=== PATIENT | female | born 1955 | race Caucasian/White ===

== ENCOUNTER 2021-08-14 10:50 | Day surgery (SDC) | payer OTHER ==
[2021-08-14] MEDS ORDERED: FERRIC CARBOXYMALTOSE 750 MG in SODIUM CHLORIDE 250 ML IVPB SCH (11:30)
[2021-08-14 14:42] VITALS: BP 132/72; PULSE 70; TEMP 98.3
== END 2021-08-14 13:30 | disposition home or self-care (01) ==
LOC: FINFUSION 10:50 → FM/S 10:56 → FINFUSION 13:30
PROVIDERS: ATTEND Family Medicine
PROC: 3E033GC Introduction of Other Therapeutic Substance into Peripheral Vein, Percutaneous Approach (ICD-10-PCS; principal; 2021-08-14)
DX: D50.9 Iron deficiency anemia, unspecified (principal)
CPT/HCPCS: 96365; J1439

== ENCOUNTER 2021-08-21 13:45 | Day surgery (SDC) | payer OTHER ==
[2021-08-21] MEDS ORDERED: FERRIC CARBOXYMALTOSE 750 MG in SODIUM CHLORIDE 250 ML IVPB SCH (14:15)
[2021-08-21 14:43] VITALS: TEMP 97.8
[2021-08-21 16:01] VITALS: BP 126/62; PULSE 72
== END 2021-08-21 16:01 | disposition home or self-care (01) ==
LOC: FINFUSION 13:45 → FM/S 13:47 → FINFUSION 16:01
PROVIDERS: ATTEND Family Medicine
PROC: 3E033GC Introduction of Other Therapeutic Substance into Peripheral Vein, Percutaneous Approach (ICD-10-PCS; principal; 2021-08-21)
DX: D50.9 Iron deficiency anemia, unspecified (principal)
CPT/HCPCS: 96365; J1439